=== PATIENT | female | born 1965 | race American Indian/Alaskan Native ===

== ENCOUNTER 2020-07-03 11:39 | Emergency (ER) | payer SELFPAY ==
--- NOTE | 2020-07-03 11:53 | Event Note ---
ED Screening Note Date of service: 07/03/20 Time: 11:52 ED Screening Note: Patient complains of bilateral chest pain radiating down both arms starting yesterday Denies past medical history No shortness of breath per patient This initial assessment/diagnostic orders/clinical plan/treatment(s) is/are subject to change based on patients health status, clinical progression and re- assessment by fellow clinical providers in the ED. Further treatment and workup at subsequent clinical providers discretion. Patient/guardian urged not to elope from the ED as their condition may be serious if not clinically assessed and managed. Initial orders include: Labs EKG Chest x-ray
[2020-07-03 12:58] LABS: Hematocrit 40.2 % (30.3-42.9); Hemoglobin 13.8 gm/dl (10.1-14.3); Mean Corpuscular HGB Conc 34 % (30-34); Mean Corpuscular Volume 90 fl (79-97); Platelet Count 277 K/mm3 (140-440); Red Blood Count 4.46 M/mm3 (3.65-5.03)
--- NOTE | 2020-07-03 12:59 | Emergency Department Report ---
ED Chest Pain HPI - General Chief Complaint: Chest Pain Stated Complaint: PAIN IN UPPER CHEST AND BOTH ARMS Time Seen by Provider: 07/03/20 11:52 Source: patient Mode of arrival: Ambulatory Limitations: No Limitations - History of Present Illness Initial Comments: This very pleasant 54-year-old female presents the emergency department the chief complaint of pain in the upper chest and down both arms that started yesterday when she woke up. She reports it feels like a tightness in her arms like she worked out recently. She rates it as 7-10 in severity. She denies any known past medical history, current medication use and has allergies to penicil emma. Previous surgical history includes a tubal ligation in 1999. She denies any oral contraceptive use, she denies any family history of cardiac disease, early cardiac disease, or sudden cardiac or thromboembolic disease. She does report she is a daily smoker of approximately 4 cigarettes/day. She denies any exertional symptoms. She reports the pain is aggravated by certain movements. - Related Data Previous Rx's Medication Instructions Recorded Last Taken Type Naproxen [Naprosyn] 500 mg PO BID #30 tablet 07/03/20 Unknown Rx Allergies Allergy/AdvReac Type Severity Reaction Status Date / Time Penicillins Allergy Hives Verified 07/03/20 11:55 Heart Score - HEART Score History: Slightly suspicious EKG: Normal Age: 45-65 Risk factors: 1-2 risk factors Troponin: < normal limit HEART Score: 2 ED Review of Systems ROS: Stated complaint: PAIN IN UPPER CHEST AND BOTH ARMS Other details as noted in HPI Comment: All other systems reviewed and negative Constitutional: denies: chills, fever Eyes: denies: eye pain, eye discharge, vision change ENT: denies: ear pain, throat pain Respiratory: denies: cough, shortness of breath, wheezing Cardiovascular: as per HPI, chest pain. denies: palpitations Endocrine: no symptoms reported Gastrointestinal: denies: abdominal pain, nausea, diarrhea Genitourinary: denies: urgency, dysuria, discharge Musculoskeletal: denies: back pain, joint swelling, arthralgia Skin: denies: rash, lesions Neurological: denies: headache, weakness, paresthesias Psychiatric: denies: anxiety, depression Hematological/Lymphatic: denies: easy bleeding, easy bruising ED Past Medical Hx - Past Medical History Previous Medical History?: No - Surgical History Past Surgical History?: No - Social History Smoking Status: Never Smoker Substance Use Type: None - Medications Home Medications: Home Medications Medication Instructions Recorded Confirmed Last Taken Type Naproxen [Naprosyn] 500 mg PO BID #30 tablet 07/03/20 Unknown Rx ED Physical Exam - General Limitations: No Limitations General appearance: alert, in no apparent distress - Head Head exam: Present: atraumatic, normocephalic - Eye Eye exam: Present: normal appearance, PERRL, EOMI Pupils: Present: normal accommodation - ENT ENT exam: Present: normal exam, normal orophraynx, mucous membranes moist - Neck Neck exam: Present: normal inspection, full ROM. Absent: tenderness, meningismus - Respiratory Respiratory exam: Present: normal lung sounds bilaterally, chest wall tenderness. Absent: respiratory distress, wheezes, rales, rhonchi, stridor - Cardiovascular Cardiovascular Exam: Present: regular rate, normal rhythm, normal heart sounds. Absent: systolic murmur, diastolic murmur, rubs, gallop - GI/Abdominal GI/Abdominal exam: Present: soft, normal bowel sounds. Absent: distended, tenderness, guarding, rebound, rigid - Extremities Exam Extremities exam: Present: normal inspection, full ROM, normal capillary refill, other (Normal equal radial pulses bilaterally). Absent: tenderness, calf tenderness (Negative Homans' sign bilaterally, no posterior calf tenderness, no palpable cords.) - Back Exam Back exam: Present: normal inspection, full ROM. Absent: tenderness, CVA tenderness (R), CVA tenderness (L), paraspinal tenderness, vertebral tenderness - Neurological Exam Neurological exam: Present: alert, oriented X3, CN II-XII intact, normal gait - Psychiatric Psychiatric exam: Present: normal affect, normal mood - Skin Skin exam: Present: warm, dry, intact, normal color. Absent: rash ED Course Vital Signs 07/03/20 11:54 Temperature 98.5 F Pulse Rate 80 Respiratory 15 Rate Blood Pressure 149/85 O2 Sat by Pulse 98 Oximetry - Reevaluation(s) Reevaluation #1: 07/03/20 12:58 Patient is nontoxic in no acute distress. EKG was reviewed and is unremarkable no acute ischemic changes. Cardiac enzymes were ordered. Overall the patient has a relatively low risk for cardiac disease with no family history, history of hypertension, diabetes or hyperlipidemia although she is a smoker. She has no exertional symptoms. Heart score will be calculated. Patient had reproducible chest wall tenderness and a suspect is likely the etiology of her symptoms. Chest x-ray shows no widening of the mediastinum and she has normal equal radial pulses with no tearing or ripping pain to the back making acute aortic dissection unlikely. Lungs were clear she has no cough or fever and no infiltrates on chest x-ray making pneumonia unlikely. No pneumothorax seen on x-ray or clinical symptoms of pneumothorax. She has a low risk by Wells criteria with no tachycardia, hypoxia, oral contraceptive use or exogenous estrogen use, and no pleuritic chest pain making PE unlikely. Reevaluation #2: 07/03/20 15:28 Patient was given Toradol and her symptoms resolved. She is feeling much better. Troponin x2 was negative, EKG was unremarkable and her heart score was low making this unlikely to be ACS or atypical ACS. Patient had a negative chest x-ray with again no tearing or ripping pain to the back and a normal mediastinum with normal equal radial pulses making acute aortic dissection unlikely. She had no signs clinically or radiographically of a pneumothorax or pneumonia. No pneumoperitoneum or pneumomediastinum evidence. Patient had pain with range of motion of the upper arms and across the chest to palpation I likely think this is musculoskeletal. Again Toradol improved her symptoms. She will low risk by Wells criteria for PE. I will refer her to cardiology and recommended outpatient follow-up with her primary care doctor return to the emergency department any change or worsening symptoms. She verbalized understand the diagnosis, treatment plan and follow-up instructions and all of her questions were answered. LEI score - Lei Score Age > 65: (0) No Aspirin use within the Past 7 Days: (0) No 3 or more CAD Risk Factors: (0) No 2 or more Angina events in past 24 hrs: (0) No Known CAD with more than 50% Stenosis: (0) No Elevated Cardiac Markers: (0) No ST Deviation Greater than 0.5mm: (0) No LEI Score: 0 ED Medical Decision Making - Lab Data Result diagrams: 07/03/20 12:22 07/03/20 12:22 - EKG Data -: EKG Interpreted by Me EKG shows normal: sinus rhythm Rate: normal - EKG Data When compared to previous EKG there are: no significant change Interpretation: normal EKG (Normal sinus rhythm with a ventricular rate of 75 bpm, no acute ST or T wave abnormalities, no STEMI, normal axis, normal intervals.) - Radiology Data Radiology results: report reviewed Ordering Physician: CESAR PRAKASH Date of Service: 07/03/20 Procedure(s): XR chest routine 2V Accession Number(s): [id number] cc: CESAR PRAKASH Fluoro Time In Minutes: CHEST 2 VIEWS INDICATION: chest pain. COMPARISON: FINDINGS: Support devices: None. Heart: Within normal limits. Lungs: No acute air space or interstitial disease. Pleura: No significant pleural effusion. No pneumothorax. Additional findings: None. IMPRESSION: 1. No acute findings. Signer Name: Abad Denis MD Signed: 07/03/2020 1:38 PM Workstation Name: [id number] Transcribed By: Dictated By: Abad Denis MD Electronically Authenticated By: Abad Denis MD Signed Date/Time: 07/03/20 1338 - Differential Diagnosis Musculoskeletal pain, ACS, PE, pneumothorax Critical care attestation.: If time is entered above; I have spent that time in minutes in the direct care of this critically ill patient, excluding procedure time. ED Disposition Clinical Impression: Nonspecific chest pain Disposition: DC-01 TO HOME OR SELFCARE Is pt being admited?: No Condition: Stable Instructions: Nonspecific Chest Pain, Adult Prescriptions: Naproxen [Naprosyn] 500 mg PO BID #30 tablet Referrals: NOHELIA HUMPHRIES MD [Primary Care Provider] - 3-5 Days YANY JERRY MD [Staff Physician] - 3-5 Days [facility] [Provider Group] - 3-5 Days ZENIA MOYER MD [Staff Physician] - 3-5 Days Forms: Work/School Release Form(ED) Time of Disposition: 15:30
[2020-07-03 13:37] LABS: Alanine Aminotransferase 12 units/L (7-56); Albumin 3.9 g/dL (3.9-5); BUN/Creatinine Ratio 7; Blood Urea Nitrogen 4 mg/dL (7-17); Calcium 9.1 mg/dL (8.4-10.2); Hemolysis Index 41
--- NOTE | 2020-07-03 13:42 | XRay Report ---
CHEST 2 VIEWS INDICATION: chest pain. COMPARISON: FINDINGS: Support devices: None. Heart: Within normal limits. Lungs: No acute air space or interstitial disease. Pleura: No significant pleural effusion. No pneumothorax. Additional findings: None. IMPRESSION: 1. No acute findings. Signer Name: Abad Denis MD Signed: 07/03/2020 1:38 PM Workstation Name: [id number]
[2020-07-03] MEDS ORDERED: KETOROLAC 30 MG/1 ML INJ IM ONE (14:06)
[2020-07-03 15:59] VITALS: BP 154/62
[2020-07-03 16:17] LABS: Anisocytosis RARE; Total Cells Counted 100
== END 2020-07-03 15:58 | disposition home or self-care (01) ==
LOC: ED 11:39
DX: R07.89 Other chest pain (principal); Z79.899 Other long term (current) drug therapy; Z88.0 Allergy status to penicillin
CPT/HCPCS: 36415; 71046; 80053; 84484; 85007; 85025; 93005; 96372; 99283; J1885

== ENCOUNTER 2020-09-20 19:29 | Emergency (ER) | payer OTHER ==
[2020-09-20] MEDS ORDERED: CYCLOBENZAPRINE 10 MG TAB PO ONE (20:03)
[2020-09-20] MEDS ORDERED: IBUPROFEN 600 MG TAB PO ONE (20:03)
[2020-09-20] MEDS ORDERED: ACETAMINOPHEN 500 MG TAB PO ONE (20:03)
[2020-09-20 20:04] VITALS: BP 143/78
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
== END 2020-09-20 22:25 | disposition home or self-care (01) ==
LOC: ED 19:29
DX: S93.401A Sprain of unspecified ligament of right ankle, initial encounter (principal); S43.402A Unspecified sprain of left shoulder joint, initial encounter; S80.11XA Contusion of right lower leg, initial encounter; Z79.1 Long term (current) use of non-steroidal anti-inflammatories (NSAID); Z79.899 Other long term (current) drug therapy; Z88.0 Allergy status to penicillin; V49.49XA Driver injured in collision with other motor vehicles in traffic accident, initial encounter; W22.10XA Striking against or struck by unspecified automobile airbag, initial encounter; Y93.89 Activity, other specified; Y92.410 Unspecified street and highway as the place of occurrence of the external cause; Y99.8 Other external cause status